=== PATIENT | female | born 1965 | race Caucasian/White ===

== ENCOUNTER 2017-03-01 15:14 | Inpatient (IN) | payer MEDICAID ==
[~2017-03-01] VITALS: Ht 175.3 cm; Wt 74.8 kg
--- NOTE | 2017-03-01 16:36 | NUR ---
REPORT GIVEN TO LIZETTE TANG FOR ADMISSION
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
[2017-03-01] MEDS ORDERED: LISI2.5T2 PO (17:57)
[2017-03-01] MEDS ORDERED: CHOL200026 PO (17:57)
[2017-03-01] MEDS ORDERED: GABA600T2 PO (17:57)
[2017-03-01] MEDS ORDERED: DIPH25CA83 PO (17:57)
[2017-03-01] MEDS ORDERED: BACL10TA PO (17:57)
[2017-03-01] MEDS ORDERED: FENT1PAT6 TD (17:57)
[2017-03-01] MEDS ORDERED: MAGN400O6 PO (17:57)
[2017-03-01] MEDS ORDERED: DULO60CA45 PO (17:57)
[2017-03-01 18:01] VITALS: BP 121/81
--- NOTE | 2017-03-01 19:08 | NUR ---
MS RN: CLOSING NOTE PT A/OX4. BED REST DUE TO MUSCULAR DYSTROPHY. NO DISTRESS NOTED. NO SOB NOTED. NO PAIN NOTED. MED RECON DONE. AWAITING MD THOMAS TO CONTINUE. ATE DINNER. NO N/V NOTED. RESTING COMFORTABLY IN BED. CALL LIGHT WITHIN REACH.
[2017-03-01 20:00] VITALS: BP 136/72
[2017-03-01] MEDS ORDERED: MAG HYDROX/AL HYDROX/SIMETH 30 ML UDC PO PRN (20:00)
[2017-03-01] MEDS ORDERED: Z GUARD REMEDY 2 OZ OINT TP PRN (20:00)
[2017-03-01] MEDS ORDERED: ZOLPIDEM TARTRATE 5 MG TABLET PO PRN (20:00)
[2017-03-01] MEDS ORDERED: ACETAMINOPHEN 325 MG TABLET PO PRN (20:00)
[2017-03-01] MEDS ORDERED: ONDANSETRON HCL/PF 4 MG/2 ML VIAL IVP PRN (20:00)
[2017-03-01] MEDS ORDERED: MAGNESIUM HYDROXIDE 30 ML UDC PO PRN ×2 (20:00)
[2017-03-01] MEDS ORDERED: diphenhydrAMINE HCL 25 MG CAPSULE PO PRN (20:00)
[2017-03-01] MEDS: GABAPENTIN 300 MG CAPSULE PO SCH (20:30)
--- NOTE | 2017-03-02 06:00 | NUR ---
RN NOTES No significant change in condition. Patient slept comfortably during shift. No c/o pain or discomfort. All needs attended. Good perineal care rendered. Will continue to monitor.
[2017-03-02 06:57] LABS: BASOPHILS % (AUTO) 0.8 % (0.0-2.0); EOSINOPHILS # (AUTO) 0.1 /CMM (0.0-0.7); EOSINOPHILS % (AUTO) 1.9 % (0.0-6.0); HEMATOCRIT 38 % (33-45); HEMOGLOBIN 12.9 g/dL (11.5-14.8); LYMPHOCYTES # (AUTO) 1.3 /CMM (0.8-4.8); LYMPHOCYTES % (AUTO) 26.3 % (20.0-44.0); MEAN CORPUSCULAR HEMOGLOBIN 31 PG (26.0-33.0); MEAN CORPUSCULAR HGB CONC 34 g/dl (31.0-36.0); MEAN CORPUSCULAR VOLUME 93 fL (82-100); MONOCYTES # (AUTO) 0.3 /CMM (0.1-1.30); MONOCYTES % (AUTO) 6.5 % (2.0-12.0); NEUTROPHILS # (AUTO) 3.1 /CMM (1.8-8.9); NEUTROPHILS % (AUTO) 64.5 % (43.0-81.0); PLATELET COUNT (AUTO) 274 /CMM (150-450); RDW COEFFICIENT OF VARIATION 12.9 (11.5-15.0); RED BLOOD CELL COUNT(AUTO) 4.11 MIL/uL (4.0-5.2); WHITE BLOOD COUNT (AUTO) 4.9 K/uL (4.3-11.0)
[2017-03-02 07:12] LABS: CALCIUM, SERUM 8.8 mg/dL (8.5-10.1); CREATININE 0.2 mg/dL (0.6-1.3); MAGNESIUM 1.9 mg/dL (1.8-2.4); PHOSPHORUS 3.7 mg/dL (2.5-4.9); POTASSIUM 4.2 mmol/L (3.5-5.1)
[2017-03-02 08:00] VITALS: BP 108/67
[2017-03-02] MEDS: HYDROCODONE/APAP 5/325MG 1 EACH TABLET PO PRN ×3 (08:31→20:13)
[2017-03-02] MEDS: LISINOPRIL (5MG) 5 MG TABLET PO SCH (09:00)
[2017-03-02] MEDS: CHOLECALCIFEROL 1,000 UNIT TABLET (VIT D3) PO SCH (09:00)
[2017-03-02 09:15] VITALS: BP 108/67
[2017-03-02] MEDS: DULOXETINE HCL 30 MG CAPSULE.DR PO SCH (09:31)
[2017-03-02] MEDS: GABAPENTIN 300 MG CAPSULE PO SCH ×3 (09:31→18:51)
[2017-03-02] MEDS: BACLOFEN (10 MG) 10 MG TABLET PO SCH ×3 (09:31→18:51)
[2017-03-02 16:00] VITALS: BP 110/74
--- NOTE | 2017-03-02 18:00 | NUR ---
NO CHANGES,COOPERATIVE,MEDICATED X2 FOR BACK PAIN WITH NORCO AND FENTANYL PATCH STARTED.
[2017-03-02] MEDS: FENTANYL TD PATCH (50 MCG/HR) 50 MCG/HR PATCH.TD72 TD SCH (18:55)
--- NOTE | 2017-03-02 19:30 | NUR ---
RN OPENING NOTES PATIENT IS IN BED, ALERT AND ORIENTED X4. VS STABLE. PATIENT C/O PAIN 7/10 IN LOWER BACK. NO SOB NOTED. RESPIRATIONS EVEN AND UNLABORED. BED IN LOW AND LOCKED POSITION. SIDE RAILSX2. CALL LIGHT WITHIN EASY REACH. WILL CONTINUE TO MONITOR AND ASSESS DURING THE SHIFT.
[2017-03-02 20:00] VITALS: BP 109/67
[2017-03-03] MEDS: HYDROCODONE/APAP 5/325MG 1 EACH TABLET PO PRN ×4 (02:35→23:25)
--- NOTE | 2017-03-03 02:35 | NUR ---
RN NOTES PATIENT C/O PAIN 7/10 IN THE BACK. NORCO [phone] GIVEN PRN. CONTINUE TO MONITOR.
--- NOTE | 2017-03-03 07:04 | NUR ---
RN CLOSING NOTES PATIENT IS IN BED, ALERT AND ORIENTED X4. VS STABLE. NO C/O PAIN AT THIS TIME. NO SOB NOTED. RESPIRATIONS EVEN AND UNLABORED. ALL NEEDS ARE MET AND MEDICATIONS GIVEN PER MD ORDER. BED IN LOW AND LOCKED POSITION. SIDE RAILSX2. CALL LIGHT WITHIN EASY REACH. WILL ENDORSE TO RN DAY SHIFT FOR CONTINUITY OF CARE.
--- NOTE | 2017-03-03 07:25 | NUR ---
RN NOTES RECEIVED PATIENT AWAKE ALERT AND VERBALLY RESPONSIVE, ABLE TO MAKE NEEDS KNOWN. RESPIRATIONS EVEN AND UNLABORED, CONTINUED ON PAIN MANAGEMENT AT THIS TIME WILL ADMINISTER PRN PAIN MEDICATIONS ORDERED. NO IV ACCESS AT THIS TIME MD AWARE, SAFETY MEASURES IN PLACE, WILL CONTINUE TO MONITOR
[2017-03-03 08:00] VITALS: BP 98/52
[2017-03-03] MEDS: BACLOFEN (10 MG) 10 MG TABLET PO SCH ×3 (08:32→16:53)
[2017-03-03] MEDS: GABAPENTIN 300 MG CAPSULE PO SCH ×3 (08:32→16:53)
[2017-03-03] MEDS: DULOXETINE HCL 30 MG CAPSULE.DR PO SCH (08:32)
[2017-03-03] MEDS: CHOLECALCIFEROL 1,000 UNIT TABLET (VIT D3) PO SCH (08:33)
[2017-03-03] MEDS: LISINOPRIL (5MG) 5 MG TABLET PO SCH (08:34)
[2017-03-03 16:00] VITALS: BP 133/78
--- NOTE | 2017-03-03 19:11 | NUR ---
RN NOTES PATIENT AWAKE ALERT AND VERBALLY RESPONSIVE, ABLE TO MAKE NEEDS KNOWN. RESPIRATIONS EVEN AND UNLABORED, CONTINUED ON PAIN MANAGEMENT AT THIS TIME WILL ADMINISTER PRN PAIN MEDICATIONS ORDERED. NO IV ACCESS AT THIS TIME MD AWARE, SAFETY MEASURES IN PLACE, WILL CONTINUE TO MONITOR AND ENDORSE TO NEXT SHIFT FOR CONTINUITY OF CARE
--- NOTE | 2017-03-03 19:45 | NUR ---
MS RN NOTE: PATIENT RESTING IN BED, NO ACUTE DISTRESS NOTED. BREATHING EVEN AND UNLABORED, NO SOB NOTED. BED LOCKED AND IN LOWEST POSITION, CALL LIGHT IN REACH. WILL CONTINUE TO MONITOR.
--- NOTE | 2017-03-03 23:40 | NUR ---
MS RN NOTE: PATIENT COMPLAINS OF PAIN TO BACK 10/04, NORCO 5/325MG ORAL GIVEN PER MD ORDER. WILL CONTINUE TO MONITOR.
[2017-03-04] VITALS: BP 90/58
[2017-03-04] MEDS: HYDROCODONE/APAP 5/325MG 1 EACH TABLET PO PRN ×4 (04:38→20:25)
--- NOTE | 2017-03-04 04:45 | NUR ---
MS RN NOTE: PATIENT COMPLAINS OF PAIN TO BACK 10/04, NORCO 5/325MG ORAL GIVEN PER MD ORDER. WILL CONTINUE TO MONITOR.
--- NOTE | 2017-03-04 06:15 | NUR ---
MS RN NOTE: PATIENT RESTING IN BED, NO ACUTE DISTRESS NOTED. BREATHING EVEN AND UNLABORED, NO SOB NOTED. BED LOCKED AND IN LOWEST POSITION, CALL LIGHT IN REACH. WILL ENDORSE TO DAY NURSE TO CONTINUE WITH PLAN OF CARE.
[2017-03-04 08:00] VITALS: BP 90/61
[2017-03-04] MEDS: LISINOPRIL (5MG) 5 MG TABLET PO SCH (09:00)
[2017-03-04] MEDS: BACLOFEN (10 MG) 10 MG TABLET PO SCH ×3 (09:46→17:07)
[2017-03-04] MEDS: DULOXETINE HCL 30 MG CAPSULE.DR PO SCH (09:46)
[2017-03-04] MEDS: CHOLECALCIFEROL 1,000 UNIT TABLET (VIT D3) PO SCH (09:46)
[2017-03-04] MEDS: GABAPENTIN 300 MG CAPSULE PO SCH ×3 (09:46→17:07)
[2017-03-04 16:00] VITALS: BP 118/73
--- NOTE | 2017-03-04 18:50 | NUR ---
MS RN CLOSING NOTES: PATIENT IN BED, ALERT ORIENTED. NO SOB NOTED. NO ACUTE DISTRESS NOTED. BREATHING REGULAR EVEN AND UNLABORED. BED LOWEST POSITION, LOCKED. CALL LIGHT PLACED WITHIN REACH. NEEDS ATTENDED AND MET. DUE MEDS GIVEN, NO ASE NOTED. WILL CONTINUE TO MONITOR AND ENDORSE TO INCOMING SHIFT FOR CONTINUITY OF CARE.
--- NOTE | 2017-03-04 19:20 | NUR ---
MS RN NOTES RECEIVED ON BED AWAKE,ALERT,ORIENTED X4,BREATHING REGULAR,NOT IN ANY FORM OF DISTRESS.VISITOR AT BEDSIDE.INCONTINENT OF URINE,DIAPERED.ABLE TO REPOSITION SELF.CALL LIGHT IN REACH,DNR/DNI STATUS.WILL CONTINUE TO MONITOR STATUS.
[2017-03-04 20:00] VITALS: BP 103/71
--- NOTE | 2017-03-04 20:25 | NUR ---
MS RN NOTES PAIN MANAGEMENT C/O LOWER BACK 7/10 ON PAIN SCALE.NORCO 5/325MG,1 TAB PO GIVEN.WILL MONITOR FOR RELIEF.
--- NOTE | 2017-03-05 01:00 | NUR ---
MS RN NOTES SLEEPING,KEPT WARM AND COMFORTABLE
[2017-03-05] MEDS: HYDROCODONE/APAP 5/325MG 1 EACH TABLET PO PRN ×2 (04:39→11:36)
--- NOTE | 2017-03-05 04:39 | NUR ---
MS RN NOTES PAIN MANAGEMENT AWAKE.C/O LOWER BACK PAIN 7/10 ON PAIN SCALE, MEDICATED WITH NORCO 5/325MG,1 TAB PO ORDERED.
--- NOTE | 2017-03-05 06:30 | NUR ---
MS RN NOTES FAIRLY RESTED AT NIGHT.PAIN MANAGEMENT EFFECTIVE.ABLE TO REPOSITION SELF.CALL LIGHT IN REACH,NEEDS ATTENDED.WILL ENDORSE TO DAY NURSE FOR JASMIN.
--- NOTE | 2017-03-05 07:20 | NUR ---
RN INITAL NOTES RECEIVED PATIENT AWAKE IN BED, COMFORTABLE, ALERT AND ORIENTED X 4, NO C/O PAIN AT THIS TIME, NOTED WITH NO SOB, BREATHING EVEN AND UNLABORED, IN NO ACUTE DISTRESS AT THIS TIME. CALL LIGHT PLACED WITHIN EASY REACH. WILL CONTINUE TO MONITOR.
[2017-03-05 08:00] VITALS: BP 94/59
[2017-03-05] MEDS: DULOXETINE HCL 30 MG CAPSULE.DR PO SCH (08:35)
[2017-03-05] MEDS: CHOLECALCIFEROL 1,000 UNIT TABLET (VIT D3) PO SCH (08:35)
[2017-03-05] MEDS: BACLOFEN (10 MG) 10 MG TABLET PO SCH ×2 (08:35→13:05)
[2017-03-05] MEDS: LISINOPRIL (5MG) 5 MG TABLET PO SCH (08:37)
[2017-03-05] MEDS: GABAPENTIN 300 MG CAPSULE PO SCH ×2 (09:47→13:05)
[2017-03-05] MEDS: FENTANYL TD PATCH (50 MCG/HR) 50 MCG/HR PATCH.TD72 TD SCH (15:22)
[2017-03-05 16:00] VITALS: BP 102/62
--- NOTE | 2017-03-05 16:40 | NUR ---
RN NOTES DISCHARGE ORDER RECEIVED FROM DR. AVILES, INFORMED PT AND DISCHARGE INSTRUCTIONS PROVIDED. PATIENT VERBALIZED UNDERSTANDING. REPORT GIVEN TO [facility]. PATIENT'S FAMILY INFORMED. PATIENT PICKED UP BY TRANSPORTATION PERSONNEL, LEFT FACILITY VIA GURNEY SAFELY WITH STABLE VITAL SIGNS, NO SOB, BREATHING EVEN AND UNLABORED, VERBALLY RESPONSIVE, WITH NO C/O PAIN AND NO SIGNS AND SYMPTOMS OF DISTRESS.
== END 2017-03-05 16:40 | DRG 816 ==
LOC: ER 15:16 → MED 17:29
PROVIDERS: ADMIT Internal Medicine; ATTEND Internal Medicine
DX: T59.811A Toxic effect of smoke, accidental (unintentional), initial encounter (principal); G71.0 Muscular dystrophy; J70.5 Respiratory conditions due to smoke inhalation; Y92.129 Unspecified place in nursing home as the place of occurrence of the external cause; Z88.8 Allergy status to other drugs, medicaments and biological substances; Z91.018 Allergy to other foods; Z79.899 Other long term (current) drug therapy; I10 Essential (primary) hypertension; G89.4 Chronic pain syndrome; G62.9 Polyneuropathy, unspecified; F41.9 Anxiety disorder, unspecified; F03.90 Unspecified dementia, unspecified severity, without behavioral disturbance, psychotic disturbance, mood disturbance, and anxiety; F32.9 Major depressive disorder, single episode, unspecified
CPT/HCPCS: 36415; 80048-TC; 83735-TC; 84100-TC; 85025-TC; 87081-TC; A4606; Z7610